=== PATIENT | female | born 1960 | race Caucasian/White ===

== ENCOUNTER 2017-09-21 13:40 | Emergency (ER) | payer MEDICAID ==
[~2017-09-21] VITALS: Ht 165.1 cm; Wt 81.0 kg
[~2017-09-21 13:40] MED LIST: ALBU1.257 NEB; BENAZAPRIL PO; FLUO20CA39 PO; FLUTICASONE FUROATE PO; HYDR25TA4 PO; MULT1TAB74 PO; VILANTEROL PO
[2017-09-21 13:51] VITALS: BP 148/80
[2017-09-21] MEDS ORDERED: IBUP-1984 PO (15:01)
== END 2017-09-21 15:21 | disposition home or self-care (01) ==
LOC: ER 13:41
DX: M79.671 Pain in right foot (principal); I10 Essential (primary) hypertension; J45.909 Unspecified asthma, uncomplicated; Z88.0 Allergy status to penicillin; Z88.2 Allergy status to sulfonamides; Z79.899 Other long term (current) drug therapy
CPT/HCPCS: 73630; 99284

== ENCOUNTER 2018-07-05 13:34 | Emergency (ER) | payer MEDICAID ==
[~2018-07-05] VITALS: Ht 165.1 cm; Wt 80.9 kg
[2018-07-05 13:49] VITALS: BP 136/70
[2018-07-05 15:50] LABS: BASOPHILS % (AUTO) 0.4 % (0-1); EOSINOPHILS # (AUTO) 0.3 X10'3 (0-0.9); EOSINOPHILS % (AUTO) 2.8 % (0-6); HEMATOCRIT 47.1 % (35.0-45.0); HEMOGLOBIN 15.4 g/dl (12.0-16.0); LYMPHOCYTES # (AUTO) 2.9 X10'3 (1.1-4.8); LYMPHOCYTES % (AUTO) 28.9 % (21-51); MEAN CORPUSCULAR HEMOGLOBIN 31.8 PG (27.0-31.0); MEAN CORPUSCULAR HGB CONC 32.6 % (33.0-36.5); MEAN CORPUSCULAR VOLUME 97.6 FL (78-98); MEAN PLATELET VOLUME 7.8 FL (7.4-10.4); MONOCYTES # (AUTO) 0.7 X10'3 (0-0.9); MONOCYTES % (AUTO) 7.3 % (2-12); NEUTROPHILS # (AUTO) 6.2 X10'3 (1.8-7.7); NEUTROPHILS % (AUTO) 60.6 % (42-75); PLATELET COUNT 286 X10'3 (140-440); RED BLOOD COUNT 4.83 X10'6 (4.20-5.60); RED CELL DISTRIBUTION WIDTH 12.6 % (11.5-14.5); WHITE BLOOD COUNT 10.1 X10'3 (4.5-11.0)
[2018-07-05] MEDS ORDERED: PROCHC RC (16:06)
== END 2018-07-05 16:21 | disposition home or self-care (01) ==
LOC: ER 13:35
DX: K64.4 Residual hemorrhoidal skin tags (principal); I10 Essential (primary) hypertension; J45.909 Unspecified asthma, uncomplicated; Z88.0 Allergy status to penicillin; Z88.2 Allergy status to sulfonamides; Z88.6 Allergy status to analgesic agent; Z79.899 Other long term (current) drug therapy
CPT/HCPCS: 36415; 85025; 99283

== ENCOUNTER 2021-11-15 10:54 | Inpatient (IN) | payer MEDICAID ==
[2021-11-08 12:11] LABS: CLARITY,URINE CLEAR (Clear); COLOR,URINE YELLOW (Yellow); GLUCOSE, URINE NEGATIVE (Neg); KETONES,URINE NEGATIVE (Neg); LEUKOCYTE ESTERASE ,URINE NEGATIVE (Neg); NITRITES, URINE NEGATIVE (Neg); OCCULT BLOOD,URINE TRACE-INTACT (Neg); PROTEIN,URINE NEGATIVE (Neg); UROBILINOGEN,URINE 0.2 E.U/dL (0.2-1.0)
[2021-11-08 12:13] LABS: BASOPHILS # (AUTO) 0.1 X10'3 (0-0.2); EOSINOPHILS # (AUTO) 0.4 X10'3 (0-0.9); EOSINOPHILS % (AUTO) 4.3 % (0-6); LYMPHOCYTES % (AUTO) 31.9 % (21-51); MEAN CORPUSCULAR HEMOGLOBIN 31.7 PG (27.0-31.0); MEAN CORPUSCULAR HGB CONC 32.9 g/dL (33.0-36.5); MEAN CORPUSCULAR VOLUME 96.3 FL (78-98); MEAN PLATELET VOLUME 7.6 FL (7.4-10.4); MONOCYTES # (AUTO) 0.8 X10'3 (0-0.9); MONOCYTES % (AUTO) 8.7 % (2-12); NEUTROPHILS # (AUTO) 5.1 X10'3 (1.8-7.7); NEUTROPHILS % (AUTO) 54.1 % (42-75); PRE OP HEMATOCRIT 45.7 % (35.0-45.0); PRE OP PLATELET COUNT 257 X10'3 (140-440); RED BLOOD COUNT 4.74 X10'6 (4.20-5.60); RED CELL DISTRIBUTION WIDTH 14.6 % (11.5-14.5)
[2021-11-08 12:13] LABS: UA COLLECTION TYPE CLN CATCH MIDSTREAM
[2021-11-08 12:21] LABS: PRE OP INR 0.9 INR; PRE OP PROTIME 9.8 SECONDS (9.0-12.0)
[2021-11-08 12:25] LABS: BACTERIA,URINE NONE SEEN /HPF (Neg); RBC,URINE 0-2 /HPF (0-2); SQUAMOUS EPITHELIAL CELL,UR NONE SEEN /LPF (FEW); WBC,URINE NONE SEEN /HPF (0-4)
[2021-11-08 12:26] LABS: ALBUMIN 3.6 G/DL (3.4-5.0); ALKALINE PHOSPHATASE 131 IU/L (46-116); BLOOD UREA NITROGEN 16 MG/DL (7-18); BUN/CREATININE RATIO 18.2 (6.6-38.0); CALCIUM 9.5 MG/DL (8.5-10.1); CHLORIDE 103 MMOL/L (99-107); CREATININE 0.88 MG/DL (0.40-0.90); PRE OP ALT 37 U/L (30-65); PRE OP ANION GAP 9 (8-16); PRE OP AST 25 U/L (10-37); PRE OP BILIRUB, TOTAL 0.4 MG/DL (0.0-1.0); PRE OP GLUCOSE 91 MG/DL (70-104); PRE OP POTASSIUM 3.4 MMOL/L (3.4-5.1); PRE OP SODIUM 140 MMOL/L (135-145); TOTAL CARBON DIOXIDE 28.2 MMOL/L (24-32); TOTAL PROTEIN 7.2 G/DL (6.4-8.2); eGFR 66 ML/MIN
[~2021-11-15] VITALS: Ht 165.1 cm; Wt 90.3 kg
[2021-11-15] VITALS (11 sets, daily range): BP systolic 101–147; BP diastolic 49–86
[~2021-11-15 10:54] MED LIST changes: -ALBU1.257 NEB; +AMIT25TA9 PO; +ASCO1CAP4 PO; +ATOR20TA66 PO; +DOCUMENT DATE & TIME OF BETA-BLOCKER PO ONE; +GLUC-95 PO; +IPRA3AMP31 IH; +LOP25T PO; +MULT-620 PO; -MULT1TAB74 PO; +OMEP20CA16 PO; +TIOT18CA3 INH; +albuterol 2.5 MG/3 ML nebule NEB ONE; +albuterol 2.5 MG/3 ML nebule NEB PRN; +clindamycin-Cleocin 900mg/D5W 50 ML IV ONE; +famotidine 20mg tablet PO ONE; +tumeric PO
--- NOTE | 2021-11-15 11:00 | NUR ---
PERFORMED LUNG ASSESSMENT. PATIENT HAS WHEEZES IN UPPER LOBES AND DIMINISHED IN LOWER LOBES. ORDERED PRN BREATHING TX PER DOCTOR'S ORDER.
[2021-11-15] MEDS: ringers solution, lacted 1,000 ML IV SCH (11:49)
[2021-11-15] MEDS ORDERED: propofol inj 20 ML IV ONE ×2 (12:19→12:21)
[2021-11-15] MEDS ORDERED: LIDOcaine 2% (20mg/ml) 5ml vial ONE ×2 (12:19→12:21)
[2021-11-15] MEDS ORDERED: rocuronium 10mg/ml inj IV ONE ×4 (12:21→17:05)
[2021-11-15] MEDS ORDERED: ondansetron/PF 4mg/2ml inj ONE (12:24)
[2021-11-15] MEDS ORDERED: dexamethasone sod phosphate 4mg/ml inj. ONE (12:24)
[2021-11-15] MEDS ORDERED: LIDOcaine 1% (10mg/ml) 2ml vial ONE (13:10)
[2021-11-15] MEDS ORDERED: BUPIVAcaine/PF 2.5 mg/ml (0.25%) 30ml vial ONE (13:35)
[2021-11-15] MEDS ORDERED: BUPIVACAINE liposomal/PF 13.3 MG/ML vial IM ONE (13:36)
[2021-11-15] MEDS ORDERED: sevoflurane 250ml liquid IH ONE (13:45)
[2021-11-15] MEDS ORDERED: PHENYLephrine 10mg/ml 5ml injection IV ONE (13:45)
[2021-11-15] MEDS ORDERED: fentaNYL/PF 50MCG/1 ML 2ML syringe ONE (14:55)
[2021-11-15] MEDS ORDERED: albumin (Human) 5% 250ml 250 ML IV ONE ×2 (15:09→15:36)
[2021-11-15] MEDS ORDERED: ringers solution, lacted 1,000 ML IV SCH (15:55)
[2021-11-15] MEDS ORDERED: morphine 2 MG/ML inj. syringe IV PRN ×2 (15:55→19:25)
[2021-11-15] MEDS ORDERED: labetalol 20mg/4ml (5mg/ml) syringe IV PRN (15:55)
[2021-11-15] MEDS ORDERED: ondansetron/PF 4mg/2ml inj IV PRN ×2 (15:55→19:25)
[2021-11-15] MEDS ORDERED: hydrALAZINE 20mg/ml inj. IV PRN (15:55)
[2021-11-15] MEDS ORDERED: fentaNYL/PF 50MCG/1 ML 2ML syringe IV PRN (15:55)
[2021-11-15] MEDS ORDERED: sugammadex 200mg/2ml injection IV ONE (16:07)
[2021-11-15] MEDS ORDERED: labetalol 20mg/4ml (5mg/ml) syringe IV ONE (18:52)
--- NOTE | 2021-11-15 19:00 | NUR ---
Received from OR via BED , accompanied by Anesthesiologist ISAIAS and report given by Anesthesiologist.
[2021-11-15] MEDS: fentaNYL/PF 50MCG/1 ML 2ML syringe IV PRN ×2 (19:03→19:21)
[2021-11-15 19:17] LABS: ABG BASE EXCESS -3.5 mmol/L (-2.0-2.0); ABG HCO3 22.9 mmol/L (22.0-26.0); ABG OXYGEN SATURATION 98.1 % (94-97); ABG PCO2 (T) 46.9 mmHg (32.0-45.0); ABG PO2 (T) 147.7 mmHg (75.0-100.0); FCOHb 1.4 % (0.0-3.9); FMetHb 0.2 % (0.0-1.5); FO2Hb 96.5 % (94-97); TOTAL HEMOGLOBIN 12.8 G/dl (12.0-16.0)
[2021-11-15] MEDS: morphine 4 MG/ML inj SYRINge IV PRN (19:23)
[2021-11-15] MEDS ORDERED: clindamycin 600mg/D5W 50ml 50 ML IV ONE (19:25)
[2021-11-15] MEDS ORDERED: morphine 4 MG/ML inj SYRINge IV PRN (19:25)
[2021-11-15] MEDS ORDERED: albuterol 2.5 MG/3 ML nebule NEB PRN (19:25)
[2021-11-15] MEDS ORDERED: metoclopramide 5 mg/ml inj IV PRN (19:25)
[2021-11-15] MEDS ORDERED: HYDROcodone/acetaminophen 10/325mg tab PO PRN (19:25)
--- NOTE | 2021-11-15 19:45 | NUR ---
I have received report from Dolly, art history professor and had the opportunity to ask questions. Room is set up and ready for PT arrival.
--- NOTE | 2021-11-15 19:55 | NUR ---
report given to SUPERVISOR SALVAGEKristina. Pt transported to icu room 2008 in stable condition with cardiac, pulse ox and bp monitoring, o2 at 6 ltr via mask, SUPERVISOR SALVAGE AT BEDSIDE TO RECEIVE PATIENT, CHARGE NURSE ALSO AT BEDSIDE.
--- NOTE | 2021-11-15 20:30 | NUR ---
PT arrived from recovery via ICU bed and placed on bedside monitor. VSS. PT arrived on 10L O2 to simple mask, will titrate down as PT tolerates. Drsg to RT lateral chest is CDI. Chest tube in place and secure with serosanguineous drainage noted in tubing. Art line to LT radial, line zeroed and transduced. CVL to RT IJ. Garcia in place and draining to gravity. Bed is locked and low, call light is within reach. Will continue to monitor.
[2021-11-15] MEDS: gabapentin 300mg capsule PO SCH (21:01)
[2021-11-15] MEDS: potassium cl 20mEq in 1/2 NS 1,000 ML IV SCH (22:00)
[2021-11-15] MEDS: HYDROcodone/acetaminophen 10/325mg tab PO PRN (22:57)
[2021-11-16] VITALS (21 sets, daily range): BP systolic 98–139; BP diastolic 52–78
[2021-11-16] MEDS: morphine 4 MG/ML inj SYRINge IV PRN ×3 (02:05→14:52)
[2021-11-16 03:33] LABS: BASOPHILS % (AUTO) 0.1 % (0-1); EOSINOPHILS % (AUTO) 0 % (0-6); HEMATOCRIT 37.1 % (35.0-45.0); HEMOGLOBIN 12.5 g/dl (12.0-16.0); LYMPHOCYTES # (AUTO) 0.8 X10'3 (1.1-4.8); LYMPHOCYTES % (AUTO) 6.5 % (21-51); MEAN CORPUSCULAR HGB CONC 33.7 g/dL (33.0-36.5); MEAN CORPUSCULAR VOLUME 97.8 FL (78-98); MEAN PLATELET VOLUME 7.4 FL (7.4-10.4); MONOCYTES # (AUTO) 0.6 X10'3 (0-0.9); MONOCYTES % (AUTO) 4.9 % (2-12); NEUTROPHILS # (AUTO) 11.1 X10'3 (1.8-7.7); NEUTROPHILS % (AUTO) 88.5 % (42-75); PLATELET COUNT 238 X10'3 (140-440); RED BLOOD COUNT 3.79 X10'6 (4.20-5.60); RED CELL DISTRIBUTION WIDTH 14.8 % (11.5-14.5); WHITE BLOOD COUNT 12.6 X10'3 (4.5-11.0)
[2021-11-16 03:44] LABS: ALANINE AMINOTRANSFERASE 38 U/L (12-78); ALBUMIN 3.4 G/DL (3.4-5.0); ALBUMIN/GLOBULIN RATIO 1.2 (1.1-1.5); ALKALINE PHOSPHATASE 60 IU/L (46-116); ANION GAP 9 (8-16); ASPARTATE AMINO TRANSFERASE 31 U/L (10-37); BILIRUBIN,TOTAL 0.3 MG/DL (0.1-1.0); BLOOD UREA NITROGEN 12 MG/DL (7-18); BUN/CREATININE RATIO 13.8 (6.6-38.0); CHLORIDE 106 MMOL/L (99-107); CREATININE 0.87 MG/DL (0.40-0.90); GLUCOSE 173 MG/DL (70-104); MAGNESIUM 2.1 MG/DL (1.5-2.4); PHOSPHORUS 3.6 MG/DL (2.3-4.5); POTASSIUM 4.3 MMOL/L (3.5-5.1); SODIUM 141 MMOL/L (135-145); TOTAL CARBON DIOXIDE 26.5 MMOL/L (24-32); TOTAL PROTEIN 6.2 G/DL (6.4-8.2); eGFR 66 ML/MIN
[2021-11-16] MEDS: HYDROcodone/acetaminophen 10/325mg tab PO PRN ×2 (05:03→17:45)
--- NOTE | 2021-11-16 06:41 | NUR ---
Problems reprioritized. Patient report given, questions answered & plan of care reviewed with Brady TSANG.
[2021-11-16] MEDS: potassium cl 20mEq in 1/2 NS 1,000 ML IV SCH (07:55)
[2021-11-16] MEDS: gabapentin 300mg capsule PO SCH ×2 (08:03→20:08)
--- NOTE | 2021-11-16 12:26 | NUR ---
Garcia and art line dc'd without incident
[2021-11-16] MEDS: ringers solution, lacted 1,000 ML IV SCH (12:31)
[2021-11-16] MEDS ORDERED: HYDROmorphone inj. 0.5 MG/0.5 ML DISP.SYRIN IV PRN (18:50)
[2021-11-16] MEDS: oxyCODONE/APAP 10/325mg tablet PO PRN (19:33)
[2021-11-16] MEDS: ciprofloxacin lact 400MG/200ML 200 ML IV SCH (20:08)
[2021-11-16] MEDS: furosemide 20 MG/2 ML vial IV SCH (20:08)
[2021-11-17] VITALS (25 sets, daily range): BP systolic 91–137; BP diastolic 41–85
[2021-11-17 02:54] LABS: BASOPHILS % (AUTO) 0.3 % (0-1); EOSINOPHILS # (AUTO) 0.2 X10'3 (0-0.9); EOSINOPHILS % (AUTO) 2.2 % (0-6); HEMATOCRIT 36.9 % (35.0-45.0); HEMOGLOBIN 12.5 g/dl (12.0-16.0); LYMPHOCYTES % (AUTO) 9.8 % (21-51); MEAN CORPUSCULAR HEMOGLOBIN 33.4 PG (27.0-31.0); MEAN CORPUSCULAR VOLUME 98.2 FL (78-98); MEAN PLATELET VOLUME 7.4 FL (7.4-10.4); MONOCYTES % (AUTO) 9.1 % (2-12); NEUTROPHILS # (AUTO) 8.2 X10'3 (1.8-7.7); NEUTROPHILS % (AUTO) 78.6 % (42-75); PLATELET COUNT 225 X10'3 (140-440); RED BLOOD COUNT 3.76 X10'6 (4.20-5.60); RED CELL DISTRIBUTION WIDTH 14.7 % (11.5-14.5); WHITE BLOOD COUNT 10.4 X10'3 (4.5-11.0)
[2021-11-17 03:09] LABS: ALANINE AMINOTRANSFERASE 30 U/L (12-78); ALBUMIN 2.8 G/DL (3.4-5.0); ALBUMIN/GLOBULIN RATIO 0.9 (1.1-1.5); ALKALINE PHOSPHATASE 67 IU/L (46-116); ANION GAP 5 (8-16); ASPARTATE AMINO TRANSFERASE 22 U/L (10-37); BILIRUBIN,TOTAL 0.4 MG/DL (0.1-1.0); BLOOD UREA NITROGEN 15 MG/DL (7-18); CALCIUM 8.4 MG/DL (8.5-10.1); CHLORIDE 105 MMOL/L (99-107); CREATININE 0.88 MG/DL (0.40-0.90); GLUCOSE 146 MG/DL (70-104); MAGNESIUM 2.2 MG/DL (1.5-2.4); PHOSPHORUS 3.3 MG/DL (2.3-4.5); POTASSIUM 3.9 MMOL/L (3.5-5.1); SODIUM 140 MMOL/L (135-145); TOTAL CARBON DIOXIDE 29.7 MMOL/L (24-32); eGFR 66 ML/MIN
[2021-11-17] MEDS: oxyCODONE/APAP 10/325mg tablet PO PRN ×3 (04:33→18:25)
[2021-11-17] MEDS: gabapentin 300mg capsule PO SCH (07:41)
[2021-11-17] MEDS: ciprofloxacin lact 400MG/200ML 200 ML IV SCH ×2 (07:41→19:26)
[2021-11-17] MEDS: furosemide 20 MG/2 ML vial IV SCH ×2 (07:42→19:26)
--- NOTE | 2021-11-17 10:23 | NUR ---
Patient in room CICU 2008. I have received report from TRINH Lantigua and had the opportunity to ask questions and assume patient care.
[2021-11-17] MEDS ORDERED: ipratropium/albuterol 3ml nebule IH PRN (10:55)
[2021-11-17] MEDS ORDERED: FLUoxetine 20mg capsule PO ONE (12:20)
[2021-11-17] MEDS ORDERED: metoprolol tartrate 25mg tablet PO ONE (12:20)
[2021-11-17] MEDS ORDERED: HYDROchlorothiazide 25mg tablet PO ONE (12:20)
[2021-11-17] MEDS ORDERED: albuterol 2.5 MG/3 ML nebule NEB SCH (15:00)
[2021-11-17] MEDS: ipratropium 0.5 MG/2.5ML nebule IH SCH ×2 (15:05→20:19)
[2021-11-17] MEDS ORDERED: ipratropium/albuterol 3ml nebule NEB SCH (15:23)
[2021-11-17] MEDS ORDERED: CYCL1DRO OP ×2 (15:31→19:07)
[2021-11-17] MEDS: albuterol 2.5 MG/3 ML nebule NEB SCH (20:19)
[2021-11-17] MEDS: budesonide 0.5mg/2ml UD nebule IH SCH (20:19)
[2021-11-18] VITALS (15 sets, daily range): BP systolic 105–131; BP diastolic 58–177
[2021-11-18] MEDS: oxyCODONE/APAP 10/325mg tablet PO PRN ×4 (02:06→20:56)
[2021-11-18] MEDS: albuterol 2.5 MG/3 ML nebule NEB SCH (03:34)
[2021-11-18] MEDS: ipratropium 0.5 MG/2.5ML nebule IH SCH (03:34)
[2021-11-18 04:02] LABS: BASOPHILS % (AUTO) 0.3 % (0-1); EOSINOPHILS # (AUTO) 0.7 X10'3 (0-0.9); EOSINOPHILS % (AUTO) 6.3 % (0-6); HEMATOCRIT 36.1 % (35.0-45.0); HEMOGLOBIN 12.3 g/dl (12.0-16.0); LYMPHOCYTES # (AUTO) 1.5 X10'3 (1.1-4.8); LYMPHOCYTES % (AUTO) 14.1 % (21-51); MEAN CORPUSCULAR HEMOGLOBIN 33.2 PG (27.0-31.0); MEAN CORPUSCULAR HGB CONC 34.2 g/dL (33.0-36.5); MEAN CORPUSCULAR VOLUME 97.3 FL (78-98); MEAN PLATELET VOLUME 7.5 FL (7.4-10.4); MONOCYTES # (AUTO) 0.9 X10'3 (0-0.9); NEUTROPHILS # (AUTO) 7.3 X10'3 (1.8-7.7); NEUTROPHILS % (AUTO) 70.3 % (42-75); PLATELET COUNT 229 X10'3 (140-440); RED BLOOD COUNT 3.71 X10'6 (4.20-5.60); RED CELL DISTRIBUTION WIDTH 14.7 % (11.5-14.5); WHITE BLOOD COUNT 10.4 X10'3 (4.5-11.0)
[2021-11-18 04:14] LABS: ALANINE AMINOTRANSFERASE 28 U/L (12-78); ALBUMIN 2.5 G/DL (3.4-5.0); ALBUMIN/GLOBULIN RATIO 0.7 (1.1-1.5); ALKALINE PHOSPHATASE 87 IU/L (46-116); ANION GAP 4 (8-16); ASPARTATE AMINO TRANSFERASE 24 U/L (10-37); BILIRUBIN,TOTAL 0.3 MG/DL (0.1-1.0); BLOOD UREA NITROGEN 12 MG/DL (7-18); CALCIUM 8.4 MG/DL (8.5-10.1); CHLORIDE 101 MMOL/L (99-107); CREATININE 0.92 MG/DL (0.40-0.90); GLUCOSE 144 MG/DL (70-104); MAGNESIUM 2.1 MG/DL (1.5-2.4); PHOSPHORUS 3.2 MG/DL (2.3-4.5); POTASSIUM 3.1 MMOL/L (3.5-5.1); SODIUM 138 MMOL/L (135-145); TOTAL CARBON DIOXIDE 33.1 MMOL/L (24-32); TOTAL PROTEIN 6.3 G/DL (6.4-8.2); eGFR 62 ML/MIN
--- NOTE | 2021-11-18 06:44 | NUR ---
Patient in room CICU 2008. I have received report from Michael TSANG and had the opportunity to ask questions and assume patient care.
[2021-11-18] MEDS: ASCORBIC ACID PO SCH (08:00)
[2021-11-18] MEDS: TUMERIC 1000 MG PO SCH (08:00)
[2021-11-18] MEDS: COLLAGEN HYDR PO SCH (08:00)
[2021-11-18] MEDS: metoprolol tartrate 25mg tablet PO SCH (08:30)
[2021-11-18] MEDS: furosemide 20 MG/2 ML vial IV SCH ×2 (08:30→20:54)
[2021-11-18] MEDS: ciprofloxacin lact 400MG/200ML 200 ML IV SCH (08:30)
[2021-11-18] MEDS: HYDROchlorothiazide 25mg tablet PO SCH (08:31)
[2021-11-18] MEDS: multivitamins, therapeutics tablet PO SCH (08:31)
[2021-11-18] MEDS: amitriptyline 25mg tablet PO SCH (08:31)
[2021-11-18] MEDS: FLUoxetine 20mg capsule PO SCH (08:31)
[2021-11-18] MEDS: pantoprazole 40mg Tablet.DR PO SCH (08:31)
[2021-11-18] MEDS: ipratropium/albuterol 3ml nebule IH SCH ×3 (09:14→20:14)
[2021-11-18] MEDS: budesonide 0.5mg/2ml UD nebule IH SCH ×2 (09:15→20:13)
--- NOTE | 2021-11-18 14:31 | NUR ---
Problems reprioritized. Patient report given, questions answered & plan of care reviewed with Sheree TSANG.
--- NOTE | 2021-11-18 14:45 | NUR ---
Pt arrived to floor. Appears stable at this time.
[2021-11-18] MEDS ORDERED: LORazepam 0.5 MG tablet PO PRN (16:20)
--- NOTE | 2021-11-18 18:32 | NUR ---
Report given to Igor TSANG, pt eating dinner at this time. No changes in condition.
[2021-11-18] MEDS: ciprofloxacin 250mg tablet PO SCH (20:53)
[2021-11-19] MEDS: ipratropium/albuterol 3ml nebule IH SCH ×4 (02:26→20:24)
[2021-11-19] MEDS: oxyCODONE/APAP 10/325mg tablet PO PRN ×4 (03:10→22:21)
[2021-11-19 06:00] VITALS: BP 114/75
[2021-11-19] MEDS: magnesium hydroxide 30ml (MOM) UD suspension PO PRN (06:39)
[2021-11-19] MEDS: budesonide 0.5mg/2ml UD nebule IH SCH ×2 (07:39→20:25)
[2021-11-19 07:46] LABS: BASOPHILS % (AUTO) 0.4 % (0-1); EOSINOPHILS # (AUTO) 0.8 X10'3 (0-0.9); EOSINOPHILS % (AUTO) 9.4 % (0-6); HEMATOCRIT 38.4 % (35.0-45.0); HEMOGLOBIN 12.8 g/dl (12.0-16.0); LYMPHOCYTES # (AUTO) 1.7 X10'3 (1.1-4.8); LYMPHOCYTES % (AUTO) 19.4 % (21-51); MEAN CORPUSCULAR HEMOGLOBIN 32.1 PG (27.0-31.0); MEAN CORPUSCULAR HGB CONC 33.3 g/dL (33.0-36.5); MEAN CORPUSCULAR VOLUME 96.5 FL (78-98); MEAN PLATELET VOLUME 7.7 FL (7.4-10.4); MONOCYTES # (AUTO) 0.8 X10'3 (0-0.9); MONOCYTES % (AUTO) 9.5 % (2-12); NEUTROPHILS # (AUTO) 5.4 X10'3 (1.8-7.7); NEUTROPHILS % (AUTO) 61.3 % (42-75); PLATELET COUNT 277 X10'3 (140-440); RED BLOOD COUNT 3.98 X10'6 (4.20-5.60); RED CELL DISTRIBUTION WIDTH 14.1 % (11.5-14.5); WHITE BLOOD COUNT 8.7 X10'3 (4.5-11.0)
[2021-11-19 07:55] LABS: ALANINE AMINOTRANSFERASE 35 U/L (12-78); ALBUMIN 2.7 G/DL (3.4-5.0); ALBUMIN/GLOBULIN RATIO 0.6 (1.1-1.5); ALKALINE PHOSPHATASE 85 IU/L (46-116); ANION GAP 5 (8-16); ASPARTATE AMINO TRANSFERASE 27 U/L (10-37); BILIRUBIN,TOTAL 0.4 MG/DL (0.1-1.0); BLOOD UREA NITROGEN 12 MG/DL (7-18); CALCIUM 9.2 MG/DL (8.5-10.1); CHLORIDE 98 MMOL/L (99-107); CREATININE 0.86 MG/DL (0.40-0.90); GLUCOSE 129 MG/DL (70-104); MAGNESIUM 2.1 MG/DL (1.5-2.4); PHOSPHORUS 4.7 MG/DL (2.3-4.5); SODIUM 138 MMOL/L (135-145); TOTAL CARBON DIOXIDE 34.8 MMOL/L (24-32); TOTAL PROTEIN 6.9 G/DL (6.4-8.2); eGFR 67 ML/MIN
[2021-11-19 07:58] LABS: POTASSIUM 2.9 MMOL/L (3.5-5.1)
[2021-11-19] MEDS: ASCORBIC ACID PO SCH (08:00)
[2021-11-19] MEDS: TUMERIC 1000 MG PO SCH (08:00)
[2021-11-19] MEDS: COLLAGEN HYDR PO SCH (08:00)
[2021-11-19] MEDS ORDERED: magnesium 4gm in 100ml NS 100 ML IV PRN (08:10)
[2021-11-19] MEDS ORDERED: potassium CL 10mEq/100ml bag 100 ML IV PRN (08:10)
[2021-11-19] MEDS ORDERED: magnesium Cl slow-release 64mg tablet PO PRN (08:10)
[2021-11-19] MEDS: multivitamins, therapeutics tablet PO SCH (08:41)
[2021-11-19] MEDS: HYDROchlorothiazide 25mg tablet PO SCH (08:41)
[2021-11-19] MEDS: pantoprazole 40mg Tablet.DR PO SCH (08:41)
[2021-11-19] MEDS: FLUoxetine 20mg capsule PO SCH (08:41)
[2021-11-19] MEDS: metoprolol tartrate 25mg tablet PO SCH (08:42)
[2021-11-19] MEDS: furosemide 20 MG/2 ML vial IV SCH ×2 (08:43→19:31)
[2021-11-19] MEDS: potassium Cl 20 mEq SR tablet PO PRN ×4 (08:45→22:22)
--- NOTE | 2021-11-19 08:46 | NUR ---
Initial: Pt s/p R upper lobectomy per EMR. Currently on Regular diet w/ 100% intake of meals meeting needs at this time. LBM 11/15 receiving PRN bowel care. No nutrition intervention implemented at this time will continue to monitor. Recs: 1. Continue Regular diet as tolerated 2. Routine bowel care 3. Weekly wts Addendum: 11/19/21 at [address] Amended: Links added.
[2021-11-19] MEDS: amitriptyline 25mg tablet PO SCH (09:22)
[2021-11-19] MEDS: ciprofloxacin 250mg tablet PO SCH ×2 (09:22→22:21)
[2021-11-19 11:00] VITALS: BP 125/83
[2021-11-19] MEDS ORDERED: magnesium citrate 296ml oral solution PO ONE (12:05)
--- NOTE | 2021-11-19 13:39 | NUR ---
O2 Sat at rest on room air:84% If below 89%: Recovery O2 Sat at rest on 2 LPM:93%:94% via cannula (mask/nasal cannula, etc..) No further documentation is necessary. If O2 Sat did not drop below 89% on room air,ambulate patient on room air. O2 Sat while ambulating on room air:___% Recovery O2 Sat while ambulating on ___LPM:___% No further documentation is necessary. If patient does not drop below 89% while ambulating, he/she does not qualify for home O2.
[2021-11-19 15:00] VITALS: BP 112/68
--- NOTE | 2021-11-19 16:55 | NUR ---
IJ dc'd per Dr Nixon order. Pt tolerated well
[2021-11-19 18:00] VITALS: BP 120/55
--- NOTE | 2021-11-19 19:07 | NUR ---
Report given to Dami RN, patient eating dinner with sister at bedside. Pt c/o slight headache and slight nausea after mag citrate but says eating helped her nausea some. Dami will look into some tylenol or other medication that may help her headache
[2021-11-19 22:00] VITALS: BP 157/86
[2021-11-20 02:00] VITALS: BP 123/79
[2021-11-20] MEDS: potassium Cl 20 mEq SR tablet PO PRN (02:29)
[2021-11-20] MEDS: ipratropium/albuterol 3ml nebule IH SCH ×3 (02:35→15:00)
[2021-11-20] MEDS: oxyCODONE/APAP 10/325mg tablet PO PRN ×3 (04:08→18:09)
[2021-11-20] MEDS: magnesium hydroxide 30ml (MOM) UD suspension PO PRN (04:11)
[2021-11-20 06:51] LABS: BASOPHILS % (AUTO) 0.4 % (0-1); EOSINOPHILS # (AUTO) 0.9 X10'3 (0-0.9); HEMATOCRIT 39.1 % (35.0-45.0); HEMOGLOBIN 13.1 g/dl (12.0-16.0); LYMPHOCYTES # (AUTO) 1.8 X10'3 (1.1-4.8); LYMPHOCYTES % (AUTO) 20.9 % (21-51); MEAN CORPUSCULAR HEMOGLOBIN 32.7 PG (27.0-31.0); MEAN CORPUSCULAR HGB CONC 33.4 g/dL (33.0-36.5); MEAN CORPUSCULAR VOLUME 97.8 FL (78-98); MEAN PLATELET VOLUME 7.5 FL (7.4-10.4); MONOCYTES # (AUTO) 0.9 X10'3 (0-0.9); MONOCYTES % (AUTO) 10.5 % (2-12); NEUTROPHILS # (AUTO) 4.9 X10'3 (1.8-7.7); NEUTROPHILS % (AUTO) 57.2 % (42-75); PLATELET COUNT 317 X10'3 (140-440); RED BLOOD COUNT 3.99 X10'6 (4.20-5.60); RED CELL DISTRIBUTION WIDTH 14.5 % (11.5-14.5); WHITE BLOOD COUNT 8.5 X10'3 (4.5-11.0)
[2021-11-20 07:10] LABS: ALANINE AMINOTRANSFERASE 44 U/L (12-78); ALBUMIN 2.9 G/DL (3.4-5.0); ALBUMIN/GLOBULIN RATIO 0.7 (1.1-1.5); ALKALINE PHOSPHATASE 107 IU/L (46-116); ANION GAP 5 (8-16); ASPARTATE AMINO TRANSFERASE 35 U/L (10-37); BILIRUBIN,TOTAL 0.4 MG/DL (0.1-1.0); BLOOD UREA NITROGEN 14 MG/DL (7-18); BUN/CREATININE RATIO 15.6 (6.6-38.0); CALCIUM 9.2 MG/DL (8.5-10.1); CHLORIDE 99 MMOL/L (99-107); GLUCOSE 141 MG/DL (70-104); MAGNESIUM 2.8 MG/DL (1.5-2.4); PHOSPHORUS 3.9 MG/DL (2.3-4.5); POTASSIUM 3.5 MMOL/L (3.5-5.1); SODIUM 140 MMOL/L (135-145); TOTAL PROTEIN 7.2 G/DL (6.4-8.2); eGFR 64 ML/MIN
[2021-11-20] MEDS: budesonide 0.5mg/2ml UD nebule IH SCH (07:41)
[2021-11-20] MEDS: multivitamins, therapeutics tablet PO SCH (10:03)
[2021-11-20] MEDS: pantoprazole 40mg Tablet.DR PO SCH (10:03)
[2021-11-20] MEDS: HYDROchlorothiazide 25mg tablet PO SCH (10:03)
[2021-11-20] MEDS: FLUoxetine 20mg capsule PO SCH (10:04)
[2021-11-20] MEDS: amitriptyline 25mg tablet PO SCH (10:04)
[2021-11-20 10:05] VITALS: BP_SYST 147
[2021-11-20] MEDS: metoprolol tartrate 25mg tablet PO SCH (10:05)
[2021-11-20] MEDS: furosemide 20 MG/2 ML vial IV SCH (10:05)
[2021-11-20] MEDS: ciprofloxacin 250mg tablet PO SCH (10:05)
[2021-11-20] MEDS ORDERED: OXYC1TAB17 PO (11:44)
[2021-11-20] MEDS ORDERED: bisacodyl 10mg suppository rectal RC PRN (14:50)
[2021-11-20] MEDS ORDERED: mineral oil 133ml enema RC PRN (14:50)
--- NOTE | 2021-11-20 17:20 | NUR ---
Paged Dr. Frank for orders regarding patient's constipation. Orders received.
== END 2021-11-20 18:40 | disposition home or self-care (01) | DRG 120 ==
LOC: PAS IN 10:54 → CICU 2S 19:44 → PCU 3S 11-18 14:43
PROVIDERS: ADMIT Surgery; ATTEND Surgery
PROC: 0BTC4ZZ Resection of Right Upper Lung Lobe, Percutaneous Endoscopic Approach (ICD-10-PCS; 2021-11-15)
PROC: 07B74ZX Excision of Thorax Lymphatic, Percutaneous Endoscopic Approach, Diagnostic (ICD-10-PCS; 2021-11-15)
PROC: 0W9930Z Drainage of Right Pleural Cavity with Drainage Device, Percutaneous Approach (ICD-10-PCS; 2021-11-15)
PROC: 02HV33Z Insertion of Infusion Device into Superior Vena Cava, Percutaneous Approach (ICD-10-PCS; 2021-11-15)
PROC: B548ZZA Ultrasonography of Superior Vena Cava, Guidance (ICD-10-PCS; 2021-11-15)
PROC: 03HY32Z Insertion of Monitoring Device into Upper Artery, Percutaneous Approach (ICD-10-PCS; 2021-11-15)
PROC: 8E0W4CZ Robotic Assisted Procedure of Trunk Region, Percutaneous Endoscopic Approach (ICD-10-PCS; principal; 2021-11-15 13:45)
DX: C34.11 Malignant neoplasm of upper lobe, right bronchus or lung (principal)
CPT/HCPCS: 36415; 36600; 71045; 71046; 80053; 81001; 82803; 82948; 83735; 84100; 84132; 85018; 85025; 85610; 85730; 86885; 86900; 86901; 87081; 93005; 94010; 94640; 94660; 94667; 94668; 94760; 97116; 97161; 97530; A4618; A6258; A6449; A7000; A7048; C1758; C9250; C9290; G0378; J0744; J1100; J1940; J2270; J2370; J2405; J2704; J3010; J3480; J3490; J7040; J7120; P9045

== ENCOUNTER 2022-06-20 06:13 | Day surgery (SDC) | payer MEDICAID ==
[2022-06-14 16:34] LABS: CLARITY,URINE SLIGHTLY CLOUDY (Clear); COLOR,URINE YELLOW (Yellow); GLUCOSE, URINE NEGATIVE (Neg); KETONES,URINE NEGATIVE (Neg); LEUKOCYTE ESTERASE ,URINE NEGATIVE (Neg); NITRITES, URINE NEGATIVE (Neg); OCCULT BLOOD,URINE TRACE-INTACT (Neg); PROTEIN,URINE NEGATIVE (Neg); UROBILINOGEN,URINE 0.2 E.U/dL (0.2-1.0)
[2022-06-14 16:34] LABS: BASOPHILS % (AUTO) 0.6 % (0-1); EOSINOPHILS # (AUTO) 0.3 X10'3 (0-0.9); EOSINOPHILS % (AUTO) 4.2 % (0-6); LYMPHOCYTES # (AUTO) 2.6 X10'3 (1.1-4.8); LYMPHOCYTES % (AUTO) 38.8 % (21-51); MEAN CORPUSCULAR HEMOGLOBIN 28.7 PG (27.0-31.0); MEAN CORPUSCULAR HGB CONC 32.4 g/dL (33.0-36.5); MEAN CORPUSCULAR VOLUME 88.6 FL (78-98); MEAN PLATELET VOLUME 7.4 FL (7.4-10.4); MONOCYTES # (AUTO) 0.5 X10'3 (0-0.9); MONOCYTES % (AUTO) 7.1 % (2-12); NEUTROPHILS # (AUTO) 3.3 X10'3 (1.8-7.7); NEUTROPHILS % (AUTO) 49.3 % (42-75); PRE OP HEMATOCRIT 38.4 % (35.0-45.0); PRE OP HEMOGLOBIN 12.4 g/dL (12.0-16.0); PRE OP PLATELET COUNT 268 X10'3 (140-440); RED BLOOD COUNT 4.33 X10'6 (4.20-5.60); RED CELL DISTRIBUTION WIDTH 19.7 % (11.5-14.5)
[2022-06-14 16:39] LABS: UA COLLECTION TYPE NON-SPECIFIED
[2022-06-14 16:43] LABS: BACTERIA,URINE 2+ /HPF (Neg); MUCUS STRANDS NONE SEEN /LPF (Neg); RBC,URINE 0-2 /HPF (0-2); SQUAMOUS EPITHELIAL CELL,UR MANY /LPF (FEW); WBC,URINE 0-4 /HPF (0-4)
[2022-06-14 16:45] LABS: TRANSITIONAL EPI CELLS,URINE FEW /HPF
[2022-06-14 16:46] LABS: ALBUMIN 3.6 G/DL (3.4-5.0); ALKALINE PHOSPHATASE 155 IU/L (46-116); BLOOD UREA NITROGEN 21 MG/DL (7-18); BUN/CREATININE RATIO 19.1 (6.6-38.0); CALCIUM 9.5 MG/DL (8.5-10.1); CHLORIDE 102 MMOL/L (99-107); PRE OP ALT 33 U/L (30-65); PRE OP ANION GAP 9 (8-16); PRE OP AST 27 U/L (10-37); PRE OP BILIRUB, TOTAL 0.3 MG/DL (0.0-1.0); PRE OP GLUCOSE 86 MG/DL (70-104); PRE OP POTASSIUM 3.6 MMOL/L (3.4-5.1); PRE OP SODIUM 138 MMOL/L (135-145); TOTAL CARBON DIOXIDE 27.2 MMOL/L (24-32); TOTAL PROTEIN 7.3 G/DL (6.4-8.2); eGFR 50 ML/MIN
[2022-06-14 17:03] LABS: ANISOCYTOSIS 2+; PLATELET ESTIMATE NORMAL
[~2022-06-20] VITALS: Ht 152.4 cm; Wt 85.0 kg
[2022-06-20] VITALS (20 sets, daily range): BP systolic 110–155; BP diastolic 65–96
[~2022-06-20 06:13] MED LIST changes: +ALBU90AE INH; -AMIT25TA9 PO; +AMIT50TA3 PO; -BENAZAPRIL PO; +CYCL1DRO OP; +FLUT1BLS25 PO; -FLUTICASONE FUROATE PO; +GABA-530 PO; -VILANTEROL PO; -albuterol 2.5 MG/3 ML nebule NEB ONE; -albuterol 2.5 MG/3 ML nebule NEB PRN; +ringers solution, lacted 1,000 ML IV SCH
--- NOTE | 2022-06-20 06:20 | NUR ---
PER PT- SHE WAS INSTRUCTED BY DR EM TO HAVE PROBLEMATIC UPPER FRONT TOOTH PULLED PRIOR TO SURGERY. PT WENT TO HER DENTIST YESTERDAY AND THIS WAS DONE, PER DENTIST NO INFECTION NOTED, NO ABO GIVEN. Addendum: 06/20/22 at 0733 by Mirta Lopez RN Amended: Links added.
[2022-06-20] MEDS ORDERED: BUPIVAcaine 0.5% inj/PF 0 ML ONE (08:30)
[2022-06-20] MEDS ORDERED: HYDROmorphone/PF 0.2 MG/ML SYRINGE IV PRN (09:30)
[2022-06-20] MEDS ORDERED: hydrALAZINE 20mg/ml inj. IV PRN (09:30)
[2022-06-20] MEDS ORDERED: morphine 2 MG/ML inj. syringe IV PRN (09:30)
[2022-06-20] MEDS ORDERED: ringers solution, lacted 1,000 ML IV SCH (09:30)
[2022-06-20] MEDS ORDERED: proCHLORperazine 10 MG/2 ml inj IV PRN (09:30)
[2022-06-20] MEDS ORDERED: meperidine/PF 25mg/ml syringe IV PRN (09:30)
[2022-06-20] MEDS ORDERED: ondansetron/PF 4mg/2ml inj IV PRN (09:30)
[2022-06-20] MEDS ORDERED: acetaminophen 1,000mg/100ml IV 100 ML IV PRN (09:30)
[2022-06-20] MEDS ORDERED: labetalol 20mg/4ml (5mg/ml) syringe IV PRN (09:30)
[2022-06-20] MEDS ORDERED: morphine 4 MG/ML inj SYRINge IV PRN (09:30)
[2022-06-20] MEDS ORDERED: rocuronium 10mg/ml inj IV ONE ×2 (09:38→09:55)
[2022-06-20] MEDS ORDERED: sevoflurane 250ml liquid IH ONE (09:38)
[2022-06-20] MEDS ORDERED: fentaNYL /PF 50mcg/ml 5ml ampule ONE (09:42)
[2022-06-20] MEDS ORDERED: midazolam 1 mg/ML 2ml injection ONE (09:42)
[2022-06-20] MEDS ORDERED: BUPIVACAINE liposomal/PF 13.3 MG/ML vial IM ONE (09:48)
[2022-06-20] MEDS ORDERED: BUPIVAcaine 0.5% inj/PF 30 ML ONE (09:48)
[2022-06-20] MEDS ORDERED: propofol inj 20 ML IV ONE ×2 (09:55→11:31)
[2022-06-20] MEDS ORDERED: LIDOcaine 2% (20mg/ml) 5ml vial ONE (09:55)
[2022-06-20] MEDS ORDERED: dexamethasone sod phosphate 4mg/ml inj. ONE (10:04)
[2022-06-20] MEDS ORDERED: ondansetron/PF 4mg/2ml inj ONE (10:04)
[2022-06-20] MEDS ORDERED: BUPIVAcaine 0.5% inj/PF 30 ml vial IJ ONE (10:21)
[2022-06-20] MEDS ORDERED: morphine 10mg/ml inj. ONE ×2 (11:19→11:20)
[2022-06-20] MEDS ORDERED: neostigmine methylsulfate 1 MG/ML 10ml vial ONE (11:31)
[2022-06-20] MEDS ORDERED: glycopyrrolate 0.2mg/ml inj ONE (11:31)
--- NOTE | 2022-06-20 11:40 | NUR ---
PT ARRIVED TO RR VIA [facility], ACCOMPANIED BY DR AGUIAR-ANESTHESIA REPORT GIVEN, PT DROWSY, VSS, DERMABONDX 4 SITES WITH ABD BINDER PRESENT-ALL CDI
[2022-06-20] MEDS: HYDROmorphone/PF 0.2 MG/ML SYRINGE IV PRN ×2 (11:58→12:38)
--- NOTE | 2022-06-20 12:46 | NUR ---
PT C/O INCISIONAL PAIN WITH NO RELIEF WITH PAIN MEDS, BUT SLEEPING IN BETWEEN MEDS AND PAIN ASSESSMENTS, VSS, NO CHANGES IN ASSESSMENT
[2022-06-20] MEDS ORDERED: oxyCODONE/APAP 5-325mg tablet PO ONE (12:55)
[2022-06-20] MEDS ORDERED: ketorolac tromethamine 15mg/ml inj. IV ONE (13:30)
--- NOTE | 2022-06-20 15:30 | NUR ---
PT HAS BEEN SITTING IN W/C FOR LAST 45MIN, TOLERATING WELL-VSS, SOME NAUSEA WITH MOVEMENT BUT FEELS BETTER WHEN ABLE TO BELCH, PT HAS HOME 02 AND DISCUSSED WITH PT NEED TO BE ON IT UNTIL ABLE TO TAKE DEEPER BREATHS AND USE CPAP WHEN SLEEPING, PT HAS O2 SAT MONITOR AT HOME WELL TO KEEP SAT >92%, PT'S RIDE BROUGHT PORTABLE O2 FOR TRANSPORT HOME, DID PRACTICE WITH I.S. WELL, PT TOLERATING FLUIDS AND CRACKERS, PIV D/CD-CANULA INTACT. PT DOING BETTER WITH PAIN AFTER PERCOCET GIVEN. ABDOMINAL BINDER IN PLACE, LAP SITES-CDI. D/C INSTRUCTIONS GIVEN TO PT-ALL QUESTIONS ANSWERED, TAKEN WITH ALL BELONGINGS VIA W/C TO VEHICLE FOR TRANSPORT HOME.
== END 2022-06-20 15:30 | disposition home or self-care (01) ==
LOC: PAS 06:13
PROVIDERS: ATTEND Surgery
DX: K43.2 Incisional hernia without obstruction or gangrene (principal); 000.000; Z79.899 Other long term (current) drug therapy; Z98.890 Other specified postprocedural states; J44.9 Chronic obstructive pulmonary disease, unspecified; G47.30 Sleep apnea, unspecified; I10 Essential (primary) hypertension; Z88.0 Allergy status to penicillin; Z88.2 Allergy status to sulfonamides; Z91.040 Latex allergy status; M19.90 Unspecified osteoarthritis, unspecified site; Z98.51 Tubal ligation status; Z90.722 Acquired absence of ovaries, bilateral
CPT/HCPCS: 36415; 49656; 80053; 81001; 82948; 85025; 93005; C1781; J0131; J1100; J1170; J1885; J2250; J2270; J2274; J2405; J2704; J2710; J3010; J3490; J7030; J7120; S0020; Z7506; Z7508; Z7512; 85008; A4615; A4618; A7000; C9290

== ENCOUNTER 2025-01-01 08:36 | Outpatient (CLI) | payer MEDICARE, MEDICAID ==
[~2025-01-01 08:36] MED LIST changes: -DOCUMENT DATE & TIME OF BETA-BLOCKER PO ONE; -clindamycin-Cleocin 900mg/D5W 50 ML IV ONE; -famotidine 20mg tablet PO ONE; -ringers solution, lacted 1,000 ML IV SCH
--- NOTE | 2025-01-01 10:07 | RADIOLOGY REPORT ---
INDICATION: RIGHT UPPER QUADRANT PAIN TECHNIQUE: Multiple real-time sonographic images of the abdomen were obtained. COMPARISON: None FINDINGS: The liver is heterogeneous in echogenicity. The liver is nodular in contour. The liver randal ures 21.0 cm. No intrahepatic biliary ductal dilatation is noted. The gallbladder is surgically absent. The common duct measures 0.6 cm and is unremarkable. No perich olecystic fluid is noted. The right kidney measures 9.6 cm. No hydronephrosis. The left kidney measures 9.3 cm. No hydronephros is. The spleen measures 9.6 cm, within normal limits. The echogenicity is within normal limits. The pancreas is not well visualized due to obscuration from bowel gas. The visualized portions of the IVC and aorta are grossly unremarkable. IMPRESSION: 1. Hepatic cirrhosis. 2. Cholecystectomy. 3. No acute process.
== END 2025-01-01 23:59 | disposition home or self-care (01) ==
LOC: RAD 08:36
DX: K74.60 Unspecified cirrhosis of liver (principal); R10.11 Right upper quadrant pain; Z90.49 Acquired absence of other specified parts of digestive tract
CPT/HCPCS: 76700